=== PATIENT | female | born 1975 | race Caucasian/White ===

== ENCOUNTER 2016-09-10 00:04 | Emergency (ER) | payer OTHER ==
[~2016-09-10] VITALS: Ht 162.6 cm; Wt 81.7 kg
[~2016-09-10 00:04] MED LIST: AMBIEN CR 6.26.25 MG PO; CELEXA40 MG PO; CLONAZEPAM PO; IBUPROFEN 800800 M1 PO; TEGRETOL XR200 MG PO
[2016-09-10 00:13] VITALS: BP 126/76
[2016-09-10] MEDS ORDERED: LAMICTAL25 MG PO (00:21)
[2016-09-10 00:27] LABS: URINE BILIRUBIN 2+ (Negative); URINE BLOOD 3+ (Negative); URINE COLOR BROWN; URINE GLUCOSE-RANDOM* TRACE (Negative); URINE KETONES 1+ (Negative); URINE NITRITE POSITIVE (Negative); URINE PROTEIN (DIPSTICK) 2+ (Negative); URINE SPECIFIC GRAVITY >= 1.030 (1.003-1.035)
[2016-09-10 00:37] LABS: ICTOTEST (BILI CONFIRMATORY) Positive (Negative)
[2016-09-10 00:38] LABS: BACTERIA >30 Many /HPF (None Seen); CASTS None Seen /LPF (None Seen); CRYSTALS None Seen /LPF (None Seen); SQUAMOUS 0-3 Few /LPF (0-3); URINE RBC >20 Many /HPF (0-2)
[2016-09-10 00:38] LABS: ABSOLUTE NEUTROPHILS 6.8 thou/uL (1.4-8.2); BASOPHILS 0.6 % (0.0-2.0); EOSINOPHILS 1.6 % (0.0-3.0); HEMATOCRIT 36.3 % (37.0-47.0); HEMOGLOBIN 12.4 gm/dL (12.0-15.0); LYMPHOCYTES 25.4 % (24.0-44.0); MCH 30.8 pg (26.0-34.0); MCHC 34.1 g/dL (28.0-37.0); MCV 90.3 fL (80.0-100.0); MONOCYTES 5.8 % (1.0-8.0); PLATELET COUNT 301 thou/uL (150-400); POLYS 66.6 % (36.0-66.0); RBC 4.02 mil/uL (4.20-5.00); WBC 10.3 thou/uL (4.0-11.0)
[2016-09-10 00:40] LABS: URINE WBC 0-5 Rare /HPF (0-5)
[2016-09-10 00:42] LABS: YEAST Present (None Seen)
[2016-09-10 00:43] LABS: ANION GAP 8 mmol/L (7-16); BUN 12 mg/dL (7-18); CALCIUM 8.9 mg/dL (8.5-10.1); CHLORIDE 101 mmol/L (98-107); CO2 29 mmol/L (21-32); CREATININE 0.9 mg/dL (0.6-1.0); GLUCOSE 116 mg/dL (74-106); MANUAL DIFF NO; POTASSIUM 3.3 mmol/L (3.5-5.1); SODIUM 138 mmol/L (136-145)
[2016-09-10 00:48] LABS: ALBUMIN 3.8 g/dL (3.4-5.0); ALKALINE PHOSPHATASE 61 U/L (46-116); DIRECT BILIRUBIN < 0.1 mg/dL (<0.1-0.3); SGOT 23 U/L (15-37); SGPT 24 U/L (30-65); TOTAL BILIRUBIN 0.2 mg/dL (<0.1-1.0); TOTAL PROTEIN 7.5 g/dL (6.4-8.2)
[2016-09-10] MEDS ORDERED: DIFLUCAN150 MG PO (02:21)
[2016-09-10] MEDS ORDERED: FLOMAX0.4 MG PO (02:21)
[2016-09-10] MEDS ORDERED: MACROBID 100 M100 M1 PO (02:21)
[2016-09-10] MEDS ORDERED: NORCO 5-325 TA1 EACH PO (02:21)
[2016-09-10] MEDS ORDERED: ZOFRAN ODT4 MG PO (02:21)
[2016-09-10 02:23] VITALS: BP 114/74
== END 2016-09-10 02:34 | disposition home or self-care (01) ==
LOC: ER 00:04 → EROBS 02:11 → ER 02:11 → EROBS 02:34
PROVIDERS: Emergency Medicine
DX: N13.2 Hydronephrosis with renal and ureteral calculous obstruction (principal); E87.6 Hypokalemia; N39.0 Urinary tract infection, site not specified; F31.9 Bipolar disorder, unspecified; N80.9 Endometriosis, unspecified; F17.210 Nicotine dependence, cigarettes, uncomplicated; F12.10 Cannabis abuse, uncomplicated